=== PATIENT | male | born 1990 | race Caucasian/White ===

== ENCOUNTER 2018-07-23 18:37 | Emergency (ER) | payer SELFPAY ==
[~2018-07-23] VITALS: Ht 172.7 cm; Wt 73.9 kg
[~2018-07-23 18:37] MED LIST: DENIES; IBUP-1542 PO
[2018-07-23 18:49] VITALS: Ht 172.7 cm; Wt 73.9 kg
--- NOTE | 2018-07-23 21:53 | ERD ---
ER Documentation Chief Complaint Chief Complaint AP x 5 days; denies n/vomiting/diarrhea HPI 27-year-old male complaining of left testicular pain times 5 days. Patient reports gradual onset of the pain, along with swelling in the left testicles. Patient states that he had a similar pain a month ago, but was in the right testicle at that time. Pain is worse with heavy lifting. Denies dysuria. Denies fever or chills. Patient reports 3-4 sexual partners in the past 12- month. ROS All systems reviewed and are negative except as per history of present illness. Medications Home Meds Active Scripts Doxycycline Hyclate* (Doxycycline Hyclate*) 100 Mg Tablet.dr, 100 MG PO BID for 10 Days, TAB Prov:RICARDO LANTIGUA. 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 Ibuprofen* (Motrin*) 600 Mg Tab, 600 MG PO Q6, #30 TAB Prov:GEMMA BECKFORD 05/16/16 Reported Medications [Denies] No Conflict Check 08/31/09 Allergies Allergies: Coded Allergies: No Known Drug Allergy (Verified Allergy, Mild, 08/31/09) PMhx/Soc Medical and Surgical Hx: pt denies Medical Hx, pt denies Surgical Hx History of Surgery: No Anesthesia Reaction: No Hx Neurological Disorder: No Hx Respiratory Disorders: No Hx Cardiac Disorders: No Hx Psychiatric Problems: No Hx Miscellaneous Medical Probl: No Hx Alcohol Use: No Hx Substance Use: Yes (METHAMPHETAMINE) Hx Tobacco Use: Yes Smoking Status: Current every day smoker Physical Exam Vitals Vital Signs Date Temp Pulse Resp B/P (MAP) Pulse Ox O2 O2 Flow FiO2 Time Delivery Rate 07/23/18 99.1 111 20 127/59 96 18:49 (81) Physical Exam General: Well-developed, well-nourished, conscious and coherent, in no distress Skin: Warm and dry without rash, good texture and turgor Head: Normocephalic without evidence of trauma Chest: Normal AP diameter. Good expansion without retractions. Nontender. Lungs are clear to auscultate bilaterally with good tidal volume Heart: Regular rate and rhythm. No murmur, rub, or gallops heard Abdomen: Soft and nontender without masses, guarding, or rebound. Bowel sounds are active. No hepatosplenomegaly : Uncircumsized male. Penis normal, no penile discharge. Left testicle is grossly enlarged, firm, erythematous and warm to touch. No inguinal hernia. Cremasteric reflex normal Extremities: Full range of motion. Good strength bilaterally. No erythema, ecchymosis, or edema. Peripheral pulses are intact. Sensation intact Neuro: Alert and oriented 4, GCS 15. Results 24 hrs Laboratory Tests Test 07/23/18 21:42 Urine Color YELLOW Urine Clarity SLIGHTLY CLOUDY Urine pH 6.0 Urine Specific Brady 1.025 Urine Ketones NEGATIVE mg/dL Urine Nitrite NEGATIVE mg/dL Urine Bilirubin NEGATIVE mg/dL Urine Urobilinogen 2+ mg/dL Urine Leukocyte Esterase 2+ [place]/ul Urine Microscopic RBC 7 /HPF Urine Microscopic WBC 159 /HPF Urine Bacteria FEW /HPF Urine Mucus FEW /HPF Urine Hemoglobin NEGATIVE mg/dL Urine Glucose NEGATIVE mg/dL Urine Total Protein 1+ mg/dl Current Medications Medications Dose Sig/Artem Start Time Status Last (Trade) Ordered Route PRN Stop Time Admin Dose Reason Admin Ibuprofen 600 mg ONCE ONCE 07/23/18 DC 07/23/18 (Motrin) PO 22:00 21:42 07/23/18 22:01 Ceftriaxone 250 mg ONCE ONCE 07/23/18 DC 07/23/18 Sodium IM 23:00 23:12 (Rocephin) 07/23/18 23:01 1,000 mg ONCE ONCE 07/23/18 DC 07/23/18 Azithromycin PO 23:00 23:12 (Zithromax) 07/23/18 23:01 Doxycycline 100 mg ONCE ONCE 07/23/18 DC 07/23/18 Hyclate PO 23:00 23:12 (Vibramycin) 07/23/18 23:01 PROCEDURE: US Scrotum. CLINICAL INDICATION: Left testicular pain. TECHNIQUE: Multiple sonographic images of the scrotal region were obtained utilizing a linear array transducer with grayscale and color-flow and a Doppler imaging. The images were reviewed on a high-resolution PACS workstation. COMPARISON: No prior studies are available for comparison. FINDINGS: Right hemiscrotum: Testis: Normal in size, morphology and without mass. There is normal blood flow. Testicular size is estimated at 5.5 x 3.2 x 2.6 centimeters. Epididymis: No abnormalities are identified, normal size and blood flow is demonstrated. Hydrocele: None identified. Varicocele: None identified. Scrotal skin: Not thickened. Left hemiscrotum: Testis: Normal in size, morphology and without mass. There is hypervascular Doppler blood flow. Testicular size is estimated at 5 x 3.9 x 3.5 centimeters. Epididymis: Heterogeneous, enlarged and hypervascular on Doppler interrogation. Incidental epididymal head cyst measuring 6 x 4 mm is noted. Hydrocele: Small and simple. Varicocele: None identified. Scrotal skin: Not thickened. RPTAT:HJJR IMPRESSION: 1. Hypervascular left testis and epididymis compatible with acute epididymo-orchitis with a small simple left-sided hydrocele an incidental left epididymal head cyst. 2. The right testis and epididymis are unremarkable. Hero Vicente Physician Date Time Electronically viewed and signed by Hero Vicente Physician on 07/23/2018 23:06 JR/ CC: RICARDO LANTIGUA. 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 On exam, he is noted to have firm, red, and swollen left testicle and epididymis. This fits the clinical picture of epididymo-orchitis. Scrotal ultrasound was obtained to rule out testicular torsion. No torsion is noted on ultrasound, the ultrasound also confirmed the epididymo-orchitis diagnosis. This is highly suspicious for sexually transmitted infections. Patient does not have any dysuria, no evidence of urinary tract infection on UA. Urine sent out for chlamydia and gonorrhea testing, results pending. Because of patient's sexual history, I decided to treat patient for chlamydia or gonorrhea infection as well as for his epididymo-orchitis. Rocephin 250 mg IM, azithromycin 1 g p.o., and doxycycline 100 mg p.o. given to the patient in the ED. Patient is informed of the testing results, he is advised to contact his sexual partners to have them tested and treated. Meanwhile, education provided to the patient regarding safe sex practices. Patient appears well, stable for discharge and outpatient management. Medical decision making shared with patient and family. Education provided to patient and family. Patient and family expressed understanding of the plan. Medications on discharge: Doxycycline. Follow-up: Primary care provider in 2-3 days or return to ED if worse. Disclaimer: Inadvertent spelling and grammatical errors are likely due to EHR/dictation software use and do not reflect on the overall quality of patient care. Also, please note that the electronic time recorded on this note does not necessarily reflect the actual time of the patient encounter. Departure Diagnosis: Primary Impression: Pain in testicle Additional Impression: Epididymo-orchitis Condition: Stable RICARDO LANTIGUA NP Jul 23, 2018 21:52
[2018-07-23] MEDS ORDERED: IBUPROFEN 600 MG TAB PO ONE (22:00)
[2018-07-23] MEDS ORDERED: AZITHROMYCIN 250 MG TAB PO ONE (23:00)
[2018-07-23] MEDS ORDERED: CEFTRIAXONE 250 MG INJ IM ONE (23:00)
[2018-07-23] MEDS ORDERED: DOXYCYCLINE 100 MG TAB PO ONE (23:00)
[2018-07-23] MEDS ORDERED: DOXY100T20 PO (23:32)
[2018-07-23 23:47] VITALS: BP 114/69; PULSE 104; RESP 16
== END 2018-07-23 23:50 | disposition home or self-care (01) ==
LOC: FTE 18:37
DX: N50.812 Left testicular pain (principal); F17.210 Nicotine dependence, cigarettes, uncomplicated; R40.2412 Glasgow coma scale score 13-15, at arrival to emergency department; N45.3 Epididymo-orchitis
CPT/HCPCS: 76870; 81001; 87591; 96372; 99285; J0696